=== PATIENT | male | born 1965 | race Caucasian/White ===

== ENCOUNTER → 2020-04-10 | Outpatient (CLI) | payer BC ==
[2020-04-10 08:33] LABS: HEMOGLOBIN 14.3 gm/dl (14.0-17.5); RED BLOOD COUNT 4.85 M/UL (4.20-5.50); WHITE BLOOD COUNT 6.8 K/UL (4.5-11.0)
[2020-04-10 09:00] LABS: BUN/CREATININE RATIO 15 (0-10)
[2020-04-11 09:13] LABS: CREATININE, URINE 28.4 mg/dL (Not Estab.); MICROALB/CREAT RATIO <11 (0-29)
== END ==
LOC: LAB 07:52
PROVIDERS: Internal Medicine
DX: I10 Essential (primary) hypertension (principal); E11.9 Type 2 diabetes mellitus without complications; E78.5 Hyperlipidemia, unspecified; E55.9 Vitamin D deficiency, unspecified; D51.8 Other vitamin B12 deficiency anemias; R80.9 Proteinuria, unspecified; Z12.5 Encounter for screening for malignant neoplasm of prostate; Z79.899 Other long term (current) drug therapy
CPT/HCPCS: 80053; 80061; 82043; 82570; 82607; 82746; 83036; 84153; 84439; 84443; 85025

== ENCOUNTER → 2020-05-29 | Outpatient (CLI) | payer BC | LOC: CT 10:03 | DX: J42 Unspecified chronic bronchitis (principal); I10 Essential (primary) hypertension; E11.9 Type 2 diabetes mellitus without complications; F41.8 Other specified anxiety disorders; K21.9 Gastro-esophageal reflux disease without esophagitis; N52.9 Male erectile dysfunction, unspecified; E78.2 Mixed hyperlipidemia | CPT/HCPCS: 36415; 71270; 82565; 84520; Q9963 ==

== ENCOUNTER → 2020-11-12 | Outpatient (CLI) | payer BC | LOC: US 11-11 13:30 | DX: I65.23 Occlusion and stenosis of bilateral carotid arteries (principal) | CPT/HCPCS: 93880 ==

== ENCOUNTER → 2020-11-27 | Outpatient (CLI) | payer BC ==
[2020-11-27 08:23] LABS: HEMOGLOBIN 14.4 gm/dl (14.0-17.5); RED BLOOD COUNT 4.91 M/UL (4.20-5.50); WHITE BLOOD COUNT 7.1 K/UL (4.5-11.0)
[2020-11-27 09:16] LABS: BUN/CREATININE RATIO 19 (0-10)
== END ==
LOC: LAB 07:24
PROVIDERS: Internal Medicine
DX: Z51.81 Encounter for therapeutic drug level monitoring (principal); Z79.899 Other long term (current) drug therapy; D64.9 Anemia, unspecified; E11.9 Type 2 diabetes mellitus without complications; K21.9 Gastro-esophageal reflux disease without esophagitis; E78.5 Hyperlipidemia, unspecified; I10 Essential (primary) hypertension; E55.9 Vitamin D deficiency, unspecified
CPT/HCPCS: 36415; 80053; 80061; 82607; 82728; 82746; 83036; 83540; 83550; 84439; 84443; 85025

== ENCOUNTER → 2020-12-03 | Outpatient (CLI) | payer BC ==
[2020-12-03 17:00] LABS: HEMOGLOBIN 14.3 gm/dl (14.0-17.5); RED BLOOD COUNT 4.86 M/UL (4.20-5.50); WHITE BLOOD COUNT 8.8 K/UL (4.5-11.0)
[2020-12-03 17:20] LABS: BUN/CREATININE RATIO 16 (0-10)
== END ==
LOC: LAB 16:31
PROVIDERS: Internal Medicine Interventional Cardiology
DX: I10 Essential (primary) hypertension (principal); E11.9 Type 2 diabetes mellitus without complications; E78.00 Pure hypercholesterolemia, unspecified
CPT/HCPCS: 36415; 80048; 85025; 85610; 85730

== ENCOUNTER → 2020-12-07 | Outpatient (CLI) | payer BC | LOC: HEART 5 09:38 | DX: R05.9 Cough, unspecified (principal) | CPT/HCPCS: 94010; 95012 ==

== ENCOUNTER → 2020-12-21 | Outpatient (CLI) | payer BC ==
[~2020-12-21] MED LIST: CRESTOR40 MG PO; HYDROCHLOROTHIA25 MG PO; LEVEMIR100 UNIT/1 SQ; LOPRESSOR 50 MG50 MG PO; METFORMIN HCL1000 M1 PO; NORVASC10 MG PO; QUINAPRIL HCL40 MG PO; TRULICITY1.5 MG/0.5 SQ; WIXELA 250-501 EACH INH
[2020-12-21 08:42] LABS: HEMOGLOBIN 15.1 gm/dl (14.0-17.5); RED BLOOD COUNT 5.09 M/UL (4.20-5.50); WHITE BLOOD COUNT 9.8 K/UL (4.5-11.0)
[2020-12-21 09:07] LABS: BUN/CREATININE RATIO 17 (0-10)
== END ==
LOC: CATH 06:46
PROVIDERS: Internal Medicine Interventional Cardiology
DX: I25.118 Atherosclerotic heart disease of native coronary artery with other forms of angina pectoris (principal); E11.9 Type 2 diabetes mellitus without complications; I10 Essential (primary) hypertension; E78.5 Hyperlipidemia, unspecified
CPT/HCPCS: 36415; 80048; 85025; 85610; 85730; 93005; 99152; C1769; C1887; C1894; J1644; J2250; J3010; J7030; Q9967

== ENCOUNTER → 2021-05-07 | Outpatient (CLI) | payer BC ==
[2021-05-07 09:45] LABS: HEMOGLOBIN 13.1 gm/dl (14.0-17.5); RED BLOOD COUNT 4.7 M/UL (4.20-5.50); WHITE BLOOD COUNT 7.6 K/UL (4.5-11.0)
[2021-05-08 08:14] LABS: ALKALINE PHOSPHATASE, S 72 IU/L (44-121); ALT (SGPT) 29 IU/L (0-44); AST (SGOT) 18 IU/L (0-40); BILIRUBIN, TOTAL 0.4 mg/dL (0.0-1.2); BUN 14 mg/dL (6-24); BUN/CREATININE RATIO 15 (9-20); CALCIUM, SERUM 9.5 mg/dL (8.7-10.2); CARBON DIOXIDE, TOTAL 23 mmol/L (20-29); CHLORIDE, SERUM 96 mmol/L (96-106); CHOLESTEROL, TOTAL 97 mg/dL (100-199); CREATININE, SERUM 0.94 mg/dL (0.76-1.27); FERRITIN 106 ng/mL (30-400); FOLATE (FOLIC ACID), SERUM >20.0 ng/mL (>3.0); GLOBULIN, TOTAL 2.1 g/dL (1.5-4.5); GLUCOSE, SERUM 128 mg/dL (65-99); HDL CHOLESTEROL 31 mg/dL (>39); IRON BIND.CAP.(TIBC) 321 ug/dL (250-450); IRON SATURATION 19 % (15-55); IRON, SERUM 62 ug/dL (38-169); LDL CHOLESTEROL CALC 46 mg/dL (0-99); LDL/HDL RATIO 1.5 ratio (0.0-3.6); POTASSIUM, SERUM 4.2 mmol/L (3.5-5.2); PROTEIN, TOTAL, SERUM 6.4 g/dL (6.0-8.5); SODIUM, SERUM 138 mmol/L (134-144); T. CHOL/HDL RATIO 3.1 ratio (0.0-5.0); TRIGLYCERIDES 108 mg/dL (0-149); UIBC 259 ug/dL (111-343); VITAMIN D, 25-HYDROXY 70.6 ng/mL (30.0-100.0)
[2021-05-08 10:14] LABS: CREATININE, URINE 235.5 mg/dL (Not Estab.)
== END ==
LOC: LAB 07:11
PROVIDERS: Internal Medicine
DX: I25.10 Atherosclerotic heart disease of native coronary artery without angina pectoris (principal); Z12.5 Encounter for screening for malignant neoplasm of prostate; D64.9 Anemia, unspecified; E11.9 Type 2 diabetes mellitus without complications; E78.5 Hyperlipidemia, unspecified; I10 Essential (primary) hypertension; Z79.899 Other long term (current) drug therapy; E55.9 Vitamin D deficiency, unspecified
CPT/HCPCS: 36415; 80053; 80061; 82043; 82570; 82607; 82728; 82746; 83036; 83540; 83550; 84153; 84439; 84443; 85025

== ENCOUNTER → 2021-06-01 | Outpatient (CLI) | payer BC | LOC: KOH-I 15:07 | DX: N28.1 Cyst of kidney, acquired (principal) | CPT/HCPCS: 76775 ==

== ENCOUNTER → 2021-11-16 | Outpatient (CLI) | payer BC ==
[2021-11-16 08:00] LABS: HEMOGLOBIN 13.3 gm/dl (14.0-17.5); RED BLOOD COUNT 4.66 M/UL (4.20-5.50)
[2021-11-16 08:26] LABS: BUN/CREATININE RATIO 17 (0-10)
[2021-11-17 11:14] LABS: CREATININE, URINE 160.7 mg/dL (Not Estab.)
== END ==
LOC: LAB 07:37
PROVIDERS: Internal Medicine
DX: E78.5 Hyperlipidemia, unspecified (principal); E03.9 Hypothyroidism, unspecified; E11.9 Type 2 diabetes mellitus without complications; I25.10 Atherosclerotic heart disease of native coronary artery without angina pectoris; D64.9 Anemia, unspecified; D51.8 Other vitamin B12 deficiency anemias; E55.9 Vitamin D deficiency, unspecified
CPT/HCPCS: 36415; 80053; 80061; 82043; 82570; 82607; 82728; 82746; 83036; 83540; 83550; 84439; 84443; 85025